=== PATIENT | female | born 1990 | race Hispanic/Latino ===

== ENCOUNTER 2016-09-15 21:13 | Emergency (ER) | payer SELFPAY ==
[~2016-09-15] VITALS: Ht 149.9 cm; Wt 59.1 kg
[~2016-09-15 21:13] MED LIST: DOCU-41 PO; IBUP800T28 PO; PREN1TAB25 PO
[2016-09-15 21:14] VITALS: BP 134/91; PULSE 77; RESP 16; O2SAT 99
--- NOTE | 2016-09-15 21:51 | ED.REPORT ---
HPI-NVD Date of Service Sep 15, 2016 ED Provider: Dr. Ochoa Pt is a 26 year old female presenting to the ED complaining of epigastric pain onset this morning. Associated symptoms include vomiting. She reports that it feels like food is stuck in her chest. She denies flu like symptoms. She denies hx of gall stones. Pt reports similar symptoms 4 times previously. Nursing Notes Stated Complaint: ABD pain Chief Complaint: Female Abdominal Pain Nursing Notes Reviewed: Yes Allergies: Coded Allergies: No Known Allergies (Verified , 12/04/15) Scheduled Omeprazole (Omeprazole) 20 Mg Capsule.dr 20 MG PO BID Vit#96/Ferrous Fum/FA ( Tablet) 1 Each Tablet 1 EACH PO DAILY Scheduled PRN Docusate Sodium (Colace) 100 Mg Capsule 100 MG PO BID PRN PRN For Constipation Ibuprofen (Ibuprofen) 800 Mg Tablet 800 MG PO TID PRN PRN For Pain General Time Seen by MD: 21:50 Chief Complaint Abd pain, constant Hx Obtained From: Patient Arrived By: Walk-in Onset Occurred: 13 - 16 hours ago Symptom Duration: Since onset Location: : Epigastric Quality: Painful Severity: Current: Mild Severity: Maximum: Moderate Recent Healthcare: No recent doctor visit, No recent hospitalization Similar Sx Previous: Yes Past Medical History Past Medical History denies Past Surgical History denies Denies: Cholecystectomy Smoking History Never Smoker Ambulatory Status Independent Review of Systems GI: Reports: Abdominal pain, Nausea, Vomiting Complete sys rev & neg: except as marked. Respiratory: Denies: Shortness of breath, Wheezing Physical Exam Initial Vital Signs Vital Signs (First) Date Time Temp Pulse Resp B/P Pulse Ox O2 Delivery O2 Flow Rate FiO2 09/15/16 21:14 36.1 77 16 134/91 99 Room Air Initial VS: Reviewed, Vital signs abnormal Head / Eyes: Atraumatic, Normocephalic, PERRL ENT: Mucous membranes moist, Conjunctiva normal, No scleral icterus Neck: Supple, Non-tender, Full range of motion Respiratory: No respiratory distress Extremities: Vascular intact, Neuro intact, No swelling, No tenderness Skin: Warm, Dry, No cyanosis Neurologic: Alert, Oriented, Nonfocal Psychiatric: Mood/affect normal, Behavior normal, Normal thought content General/Constitutional: Awake, Alert, No acute distress, Well appearing Abdomen: No guarding, No rebound Tenderness/Guarding/Rebound: Positive: Tender epigastric Interpretation & Diagnostics Lab Results Interpretation Result Diagram: 09/15/16210909/15/162109 Test 09/15/16 21:10 09/15/16 22:00 White Blood Count 9.5th/mm3 (3.8-10.1) Red Blood Count 3.99mil/mm3 (3.90-5.20) Hemoglobin 12.6g/dL (12.0-15.6) Hematocrit 37.1% (35.0-46.0) Mean Corpuscular Volume 93.0fL (81-100) Mean Corpuscular Hemoglobin 31.6pg (27.0-35.0) Mean Corpuscular Hemoglobin Concent 34.0% (32.0-37.0) Red Cell Distribution Width 12.5% (12.3-15.4) Platelet Count 260bil/L (150-400) Neutrophils (%) (Auto) 50.6% (40-74) Lymphocytes (%) (Auto) 37.0% (14-46) Monocytes (%) (Auto) 8.3% (4-12) Eosinophils (%) (Auto) 3.5% (0-5) Basophils (%) (Auto) 0.4% (0-3) Sodium Level 138mEq/L (134-144) Potassium Level 4.0mEq/L (3.5-5.2) Chloride Level 101mEq/L (97-108) Carbon Dioxide Level 23mmol/L (18-29) Blood Urea Nitrogen 13mg/dL (6-20) Creatinine 0.39mg/dL (0.57-1.00) Estimat Glomerular Filtration Rate 280mL/min (>59) Glucose Level 100mg/dL (60-99) Calcium Level 9.1mg/dL (8.5-10.1) Magnesium Level 1.8mg/dL (1.6-2.6) Total Bilirubin 0.3mg/dL (0.0-1.2) Aspartate Amino Transf (AST/SGOT) 24U/L (0-50) Alanine Aminotransferase (ALT/SGPT) 23U/L (0-32) Alkaline Phosphatase 97U/L (25-150) Total Protein 8.0g/dL (6.4-8.4) Albumin 4.6g/dL (3.4-5.0) Lipase 39U/L (13-60) Hold Ferguson Top Tube Received (Received) Hold Urine Received (Received) Lab values outside NL range: no clinical significance. Re-Eval/Medical Decision Med Decision/Clinical Course Uncomplicated gastroesophageal reflux disease. No evidence of serious or surgical problem. Omeprazole 20 mg by mouth twice a day for 10 days, then one by mouth daily, #60 prescription written. Recheck as needed with her regular doctor. Re-Evaluation/Progress : Time of Eval: 23:02 Patient Status: Condition improved Re-Evaluation/Progress Note: Pt reports that her epigastrium feels warm but her pain is improved. She denies taking any antacid medications. Discussed plan for discharge. Pt understands and agrees. Counseled Regarding: Diagnosis, Lab results, Need for follow-up, When/why to return to ED Discharge & Departure Impression: Primary Impression: GERD (gastroesophageal reflux disease) Esophagitis presence: without esophagitis Qualified Code: K21.9 - Gastro- esophageal reflux disease without esophagitis Disposition: Home Discharge Condition All VS Reviewed: Yes Condition: Improved Patient Instructions: Gastroesophageal Reflux Disease (ED) Additional Instructions: Omeprazole 20 mg by mouth twice a day for 10 days, then one by mouth daily, #60 prescription written. Recheck as needed with your regular doctor. Referrals: NOPCP (PCP) [facility] Attestation Portions of this note were transcribed by Yosef Patrick. I, Dr. Ochoa personally performed the history, physical exam and medical decision-making; I reviewed and confirmed the accuracy of the information in the transcribed note. Signed by: Finesse Das, 09/16/2016 and 0001. copies to: [facility] Ochoa MD Sep 15, 2016 21:51 YOSEF PATRICK Sep 15, 2016 22:07
[2016-09-15 22:22] LABS: BASOPHILS % (AUTO) 0.4 % (0-3); EOSINOPHILS % (AUTO) 3.5 % (0-5); MONOCYTES % (AUTO) 8.3 % (4-12); Mean Corpuscular Hemoglobin 31.6 pg (27.0-35.0); NEUTROPHILS % (AUTO) 50.6 % (40-74); Platelet Count 260 bil/L (150-400)
[2016-09-15] MEDS ORDERED: Alum-Mag Hydrox-Simeth 30 mL Suspension PO ONE (22:35)
[2016-09-15 22:48] LABS: Magnesium 1.8 mg/dL (1.6-2.6)
[2016-09-15] MEDS ORDERED: OMEP20CA11 PO (23:06)
== END 2016-09-15 23:38 | disposition home or self-care (01) ==
LOC: SED 21:13
DX: K21.9 Gastro-esophageal reflux disease without esophagitis (principal)